=== PATIENT | female | born 1990 | race Caucasian/White ===

== ENCOUNTER → 2017-01-29 | Outpatient (CLI) | payer BC ==
--- NOTE | 2017-01-29 12:01 | XR ---
EXAMINATION TYPE: XR cervical spine comp DATE OF EXAM: 01/29/2017 COMPARISON: NONE HISTORY: Pain TECHNIQUE: Four views are submitted. FINDINGS: The odontoid is intact. There are no compression deformities. The prevertebral soft tissue structur es are within normal limits. IMPRESSION: 1. No acute process.
== END | disposition home or self-care (01) ==
LOC: RADXRYALE 11:45
PROVIDERS: ATTEND Physician Assistant Medical
DX: M54.2 Cervicalgia (principal); G44.209 Tension-type headache, unspecified, not intractable; M25.531 Pain in right wrist
CPT/HCPCS: 72050

== ENCOUNTER → 2022-11-29 | Outpatient (CLI) | payer BC ==
--- NOTE | 2022-11-29 11:14 | XR ---
EXAMINATION TYPE: XR shoulder complete RT DATE OF EXAM: 11/29/2022 COMPARISON: NONE HISTORY: Pain TECHNIQUE: Three views are submitted. FINDINGS: The osseous structures are intact. There is no acute fracture or dislocation. The AC joint is maint ained. IMPRESSION: 1. No acute process.
== END | disposition home or self-care (01) ==
LOC: RADXRYALE 10:55
PROVIDERS: ATTEND Physician Assistant Medical
DX: M25.511 Pain in right shoulder (principal)

== ENCOUNTER → 2023-02-22 | Outpatient (CLI) | payer BC ==
--- NOTE | 2023-02-22 09:07 | MR ---
MRI CERVICAL SPINE: CLINICAL HISTORY: Right shoulder and neck pain. Right shoulder and neck pain. TECHNIQUE: Multiplanar, multisequence imaging of the cervical spine is performed without IV contrast. COMPARISON: Cervical spine x-ray January 29, 2017 FINDINGS: Sagittal images of the cervical spine show the craniocervical junction to appear within nor mal limits. The cervical and upper thoracic spinal cord is normal in course, caliber, and signal. V ertebral alignment is straightened. The vertebral body and intravertebral disk heights are normal. The bone marrow signal intensity is within normal limits. Axial images show tiny central disc protrusion at C4-C5 level minimally effacing anterior thecal sac otherwise no significant disc herniation or neural foraminal narrowing is identified. IMPRESSION: Straightening of cervical spine with tiny central disc herniation at C4-C5 level.
--- NOTE | 2023-02-22 09:18 | MR ---
EXAMINATION TYPE: MR shoulder RT wo con DATE OF EXAM: 02/22/2023 COMPARISON: Right shoulder x-ray November 29, 2022 HISTORY: Right shoulder and neck pain for a few years getting worse recently with difficulty raising arm overhead. TECHNIQUE: Multiplanar, multisequence imaging of the right shoulder is performed without contrast. FINDINGS: Rotator Cuff: Some increased signal in the supraspinatus and infraspinatus tendons with focal fluid a long the bursal surface. No retracted tear is seen. Subscapularis tendon has wavy course with increas ed signal. Rotator cuff muscle bulk is preserved. Acromioclavicular Joint: Acromioclavicular joint shows mild capsular hypertrophy. Underlying fat plan e is maintained. No significant spurring is seen. Glenohumeral Joint: Small joint effusion is noted. No significant spurring is seen. Labrum: The labrum appears grossly intact given limitation of non-arthrogram study. Biceps Tendon: The long head of biceps is in normal location within bicipital groove. Bone marrow signal: Slight heterogeneity. Tiny subchondral cystic change involving the posterior supe rior humeral head. Other: No additional significant abnormality is appreciated. IMPRESSION: 1. Some tendinosis of the supraspinatus and infraspinatus tendons with associated subdeltoid/subacrom ial bursitis. No full thickness retracted rotator cuff tear. No labral tear is seen.
== END | disposition home or self-care (01) ==
LOC: RADMRIMAIN 07:37
PROVIDERS: ATTEND Family Medicine
DX: M50.121 Cervical disc disorder at C4-C5 level with radiculopathy (principal); M67.813 Other specified disorders of tendon, right shoulder; R53.1 Weakness
CPT/HCPCS: 72141

== ENCOUNTER → 2023-07-04 | Outpatient (CLI) | payer BC ==
--- NOTE | 2023-07-08 14:30 | CT ---
EXAMINATION TYPE: CT iac wo con CT DLP: 205 mGycm, Automated exposure control for dose reduction was used. DATE OF EXAM: 07/04/2023 8:39 AM INDICATION: Patient age:Female; 33 years old; Reason for study: H93.19 TINNITUS, UNSPECIFIED EAR; PHH. COMPARISON: None. TECHNIQUE: Multiple thin axial images were obtained through the temporal bones and internal auditory canals. Additional coronal reformatted images were obtained. No IV contrast was utilized. CT Contrast: Contrast used: mL of , none. FINDINGS: Right Temporal Bone: External Ear: The external auditory canal is unremarkable, The tympanic membrane is present and unrem arkable. Middle Ear: The ossicles demonstrate a normal appearance. Prussak's space is clear and the scutum i s intact. There is no evidence of osseous erosion and the tegmen tympani is intact. Inner Ear: Cochlea, vestibule and semi circular canals are unremarkable. No evidence of carotid carlota l dehiscence. Two and a half turns of the cochlea are identified. The vestibular aqueduct is not enl arged. Mastoid Air Cells: The mastoid air cells are clear. The tegmen mastoideum is intact. The aditus ad an trum is clear. Internal Auditory Canal: The internal auditory canal is unremarkable. Left Temporal Bone: External Ear: The external auditory canal is unremarkable, The tympanic membrane is present and unrem arkable. Middle Ear: The ossicles demonstrate a normal appearance. Prussak's space is clear and the scutum i s intact. There is no evidence of osseous erosion and the tegmen tympani is intact. Inner Ear: Cochlea, vestibule and semi circular canals are unremarkable. No evidence of carotid carlota l dehiscence. Two and a half turns of the cochlea are identified. The vestibular aqueduct is not enl arged. Mastoid Air Cells: The mastoid air cells are clear. The tegmen mastoideum is intact. The aditus ad an trum is clear. Internal Auditory Canal: The internal auditory canal is unremarkable. IMPRESSION: Normal internal auditory canal study.
== END | disposition home or self-care (01) ==
LOC: RADCTMAIN 08:19
PROVIDERS: ATTEND Otolaryngology
DX: H93.19 Tinnitus, unspecified ear (principal); H91.90 Unspecified hearing loss, unspecified ear
CPT/HCPCS: 70480